=== PATIENT | male | born 1995 | race Caucasian/White ===

== ENCOUNTER 2017-02-10 21:44 | Emergency (ER) | payer SELFPAY ==
[~2017-02-10] VITALS: Ht 165.1 cm; Wt 68.0 kg
[2017-02-10 21:48] VITALS: BP 137/88; PULSE 94; RESP 16; TEMP 98.5; O2SAT 96
--- NOTE | 2017-02-10 22:23 | PD ---
Physical Exam Date Seen by Provider: Feb 10, 2017 Time Seen by Provider: 22:22 Narrative 21 yo male that presents to the ED for evaluation of right flank and lower abdominal pain. Going on since today. Pain is 7/10. sharp. No N/V. No BM issues. No surgeries to abdomen. Vitals are stable in triage. Awaiting bed placement. Data Data Last Documented VS Vital Signs Date Time Temp Pulse Resp B/P (MAP) Pulse Ox O2 Delivery O2 Flow Rate FiO2 02/10/17 21:48 98.5 94 16 137/88 (104) 96 Room Air [facility] Medical Record Reviewed: Yes Supervised Visit with CALVIN: No Umair Dailey Feb 10, 2017 22:23
[2017-02-11] MEDS ORDERED: SODIUM CHLOR 0.9% 1000 ML INJ 1,000 ML IV SCH (00:16)
--- NOTE | 2017-02-11 00:19 | PD ---
HPI Chief Complaint: Flank/Kidney Pain Time Seen by Provider: 00:12 Travel History International Travel<30 days: No Contact w/Intl Traveler<30days: No Traveled to known affect area: No History of Present Illness HPI 21-year-old male presents to the emergency department by private transportation for complaint of abdominal pain over 10 intensity. Pain is right upper quadrant and right flank. Nausea without vomiting. No diarrhea. This is third episode of similar pain. Patient denies personal history of gastritis peptic ulcer disease gallbladder disease or pancreatitis. No family history of dyslipidemia hypertriglyceridemia or gallbladder disease. Patient states he does frequently noticed symptoms after eating a greasy male. Patient denies any chest pain or shortness of breath. Patient's had no fever or chills. Patient's had no dysuria frequency urgency flank pain or hematuria. Patient denies any trauma injury. Patient is unable to identify exacerbating or alleviating factors. Currently pain is 0/10 in intensity. PFSH Past Medical History Narrative Medical Negative past medical history negative surgical history no tobacco use no alcohol use: Nursing notes reviewed Medical History: Denies Significant Hx Diminished Hearing: No Past Surgical History Surgical History: No Previous Surgery Social History Alcohol Use: No Tobacco Use: No Substance Use: No Allergies-Medications (Allergen,Severity, Reaction): Coded Allergies: No Known Allergies (Unverified , 02/10/17) Reported Meds & Prescriptions Reported Meds & Active Scripts Active Lortab (Hydrocodone-Acetaminophen) 5-325 Mg Tab 1 Tab PO Q6H PRN Ibuprofen 600 Mg Tab 600 Mg PO Q6H PRN Zofran (Ondansetron HCl) 4 Mg Tab 4 Mg PO Q6HR PRN Flomax (Tamsulosin HCl) 0.4 Mg Cap 0.4 Mg PO HS Review of Systems Except as stated in HPI: all other systems reviewed are Neg General / Constitutional: No: Fever, Chills HENT: No: Congestion Cardiovascular: No: Chest Pain or Discomfort Respiratory: No: Shortness of Breath Gastrointestinal: Positive: Nausea, Abdominal Pain, No: Vomiting, Diarrhea Genitourinary: No: Hematuria, Flank Pain Musculoskeletal: No: Myalgias, Arthralgias Skin: No Rash Neurologic: No: Weakness Psychiatric: No: Anxiety Hematologic/Lymphatic: No: Lymph Node Enlargement Physical Exam Narrative GENERAL: Well-developed well-nourished male in no acute distress no respiratory distress SKIN: Warm and dry. HEAD: Normocephalic. EYES: No scleral icterus. No injection or drainage. NECK: Supple, trachea midline. No JVD or lymphadenopathy. CARDIOVASCULAR: Regular rate and rhythm without murmurs, gallops, or rubs. RESPIRATORY: Breath sounds equal bilaterally. No accessory muscle use. GASTROINTESTINAL: Abdomen soft, non-tender, nondistended. No guarding or rebound no clinical Clark sign no tenderness at McBurney's point no heel strike pain. MUSCULOSKELETAL: No cyanosis, or edema. BACK: Nontender without obvious deformity. No CVA tenderness. Data Data Last Documented VS Vital Signs Date Time Temp Pulse Resp B/P (MAP) Pulse Ox O2 Delivery O2 Flow Rate FiO2 02/11/17 02:55 98.1 82 18 129/71 (90) 97 Nasal Cannula Orders Orders Complete Blood Count With Diff (02/11/17 00:16) Comprehensive Metabolic Panel (02/11/17 00:16) Lipase (02/11/17 00:16) Urinalysis - C+S If Indicated (02/11/17 00:16) Iv Access Insert/Monitor (02/11/17 00:16) Ecg Monitoring (02/11/17 00:16) Oximetry (02/11/17 00:16) Sodium Chlor 0.9% 1000 Ml Inj (Ns 1000 M (02/11/17 00:16) Sodium Chloride 0.9% Flush (Ns Flush) (02/11/17 00:30) Ct Abd/Pel W/O Iv Contrast (02/11/17 ) Ed Discharge Order (02/11/17 02:32) Labs Laboratory Tests Test 02/11/17 00:19 02/11/17 00:50 White Blood Count 11.8 TH/MM3 Red Blood Count 5.07 MIL/MM3 Hemoglobin 15.3 GM/DL Hematocrit 45.1 % Mean Corpuscular Volume 88.9 FL Mean Corpuscular Hemoglobin 30.2 PG Mean Corpuscular Hemoglobin Concent 34.0 % Red Cell Distribution Width 13.2 % Platelet Count 233 TH/MM3 Mean Platelet Volume 9.7 FL Neutrophils (%) (Auto) 83.6 % Lymphocytes (%) (Auto) 11.2 % Monocytes (%) (Auto) 4.6 % Eosinophils (%) (Auto) 0.4 % Basophils (%) (Auto) 0.2 % Neutrophils # (Auto) 9.8 TH/MM3 Lymphocytes # (Auto) 1.3 TH/MM3 Monocytes # (Auto) 0.5 TH/MM3 Eosinophils # (Auto) 0.0 TH/MM3 Basophils # (Auto) 0.0 TH/MM3 CBC Comment DIFF FINAL Differential Comment Blood Urea Nitrogen 23 MG/DL Creatinine 1.21 MG/DL Random Glucose 115 MG/DL Total Protein 8.0 GM/DL Albumin 4.3 GM/DL Calcium Level 9.2 MG/DL Alkaline Phosphatase 77 U/L Aspartate Amino Transf (AST/SGOT) 12 U/L Alanine Aminotransferase (ALT/SGPT) 22 U/L Total Bilirubin 0.5 MG/DL Sodium Level 139 MEQ/L Potassium Level 3.3 MEQ/L Chloride Level 104 MEQ/L Carbon Dioxide Level 28.5 MEQ/L Anion Gap 7 MEQ/L Estimat Glomerular Filtration Rate 77 ML/MIN Lipase 110 U/L Urine Color YELLOW Urine Turbidity CLEAR Urine pH 6.0 Urine Specific Cisco 1.039 Urine Protein TRACE mg/dL Urine Glucose (UA) NEG mg/dL Urine Ketones NEG mg/dL Urine Occult Blood MOD Urine Nitrite NEG Urine Bilirubin NEG Urine Urobilinogen 2.0 MG/DL Urine Leukocyte Esterase NEG Urine RBC 6 /hpf Urine WBC 2 /hpf Urine Squamous Epithelial Cells <1 /hpf Urine Calcium Oxalate Crystals RARE /hpf Urine Amorphous Sediment RARE Urine Mucus FEW /lpf Microscopic Urinalysis Comment CULT NOT INDICATED MDM Medical Decision Making Medical Screen Exam Complete: Yes Emergency Medical Condition: Yes Medical Record Reviewed: Yes Interpretation(s) CBC & BMP Diagram 02/11/17 00:19 Total Protein 8.0, Albumin 4.3, Calcium Level 9.2, Alkaline Phosphatase 77, Aspartate Amino Transf (AST/SGOT) 12 L, Alanine Aminotransferase (ALT/SGPT) 22, Total Bilirubin 0.5 Vital Signs Date Time Temp Pulse Resp B/P (MAP) Pulse Ox O2 Delivery O2 Flow Rate FiO2 02/10/17 22:28 18 02/10/17 21:48 98.5 94 16 137/88 (104) [address] a/p: distal right UVJ 5mm stone with mild hydroureter and hydronephrosis per reading radiologist Differential Diagnosis Abdominal pain, gastritis, peptic ulcer disease, biliary colic, cholecystitis, pancreatitis, renal colic, UTI, esophageal spasm, muscle skeletal pain Narrative Course IV access obtained specimens collected and sent for resulting patient given fluid hydration pain is currently 0/10 in intensity no pain medication administered CBC with automated differential metabolic panel values found to be grossly normal range Urinalysis positive for red blood cells as well as occult blood no evidence for infection and culture not indicated in view of sudden onset of symptoms flank pain with nausea without vomiting will proceed with CT kidney stone protocol CT kidney stone protocol resulted and identified to have distal right UVJ 5 mm stone with mild hydroureter and hydronephrosis; patient is stable for outpatient management and follow-up with urologist. Critical Care Narrative IV access obtained specimens collected and sent for resulting patient administered 1 L normal saline currently pain is 0/10 in intensity and no nausea therefore no anti-medic or pain medication administered at this time Diagnosis Primary Impression: Nephrolithiasis Additional Impression: Renal colic on right side Referrals: Urologist call for appointment yard caller Urologist; Dr Farley Patient Instructions: General Instructions Additional Instructions: Increase fluid hydration Take medication as prescribed Follow-up with urologist Return to the emergency department for any concerns or change in condition No work times one day strain urine Med/Other Pt SpecificInfo: Prescription(s) given Scripts Hydrocodone-Acetaminophen (Lortab) 5-325 Mg Tab 1 TAB PO Q6H Y for PAIN, #7 TAB 0 Refills Prov: Shantell Azevedo MD 02/11/17 Ibuprofen (Ibuprofen) 600 Mg Tab 600 MG PO Q6H Y for Pain/Inflammation, #15 TAB 0 Refills Prov: Shantell Azevedo MD 02/11/17 Ondansetron (Zofran) 4 Mg Tab 4 MG PO Q6HR Y for NAUSEA OR VOMITING, #10 TAB 0 Refills Prov: Shantell Azevedo MD 02/11/17 Tamsulosin (Flomax) 0.4 Mg Cap 0.4 MG PO HS for Manage Prostate Problems, #7 CAP 0 Refills Prov: Shantell Azevedo MD 02/11/17 Disposition: 01 DISCHARGE HOME Condition: Stable Shantell Azevedo MD Feb 11, 2017 00:19
[2017-02-11] MEDS ORDERED: SODIUM CHLORIDE 0.9% FLUSH 10 ML FLUSH IV FLUSH PRN (00:30)
[2017-02-11 00:31] LABS: AUTOMATED NEUTROPHIL # 9.8 TH/MM3 (1.8-7.7); BASOPHIL % 0.2 % (0.0-2.0); EOSINOPHIL % 0.4 % (0.0-4.0); HEMATOCRIT 45.1 % (39.0-51.0); HEMO FLAGS DIFF FINAL; LYMPH % 11.2 % (9.0-44.0); LYMPHOCYTE # 1.3 TH/MM3 (1.0-4.8); MEAN CELL VOLUME 88.9 FL (80.0-100.0); MEAN CORPUSCULAR HEMOGLOBIN 30.2 PG (27.0-34.0); MONO % 4.6 % (0.0-8.0); NEUT % 83.6 % (16.0-70.0); PLATELET COUNT 233 TH/MM3 (150-450); RED BLOOD COUNT 5.07 MIL/MM3 (4.50-5.90); RED CELL DISTRIBUTION WIDTH 13.2 % (11.6-17.2); WHITE BLOOD COUNT 11.8 TH/MM3 (4.0-11.0)
[2017-02-11 00:52] LABS: ANION GAP 7 MEQ/L (5-15); AST (GOT) 12 U/L (15-39); BICARBONATE 28.5 MEQ/L (21.0-32.0); BLOOD UREA NITROGEN 23 MG/DL (7-18); CHLORIDE 104 MEQ/L (98-107); GLOMERULAR FILTRATION RATE 77 ML/MIN (>89); POTASSIUM 3.3 MEQ/L (3.5-5.1); SODIUM (NA) 139 MEQ/L (136-145)
[2017-02-11 00:57] LABS: ALKALINE PHOSPHATASE 77 U/L (45-117); ALT (GPT) 22 U/L (9-52); TOTAL BILIRUBIN ADULT 0.5 MG/DL (0.2-1.0)
[2017-02-11 01:30] LABS: BLOOD, URINE MOD (NEG); CALCIUM OXALATE CRYSTALS,URINE RARE /hpf; COMMENT (UR) CULT NOT INDICATED; CULTURE IF INDICATED CULT NOT INDICATED; GLUCOSE,URINE NEG (NEG); KETONE, URINE NEG (NEG); MUCUS URINE FEW /lpf (OCC); NITRITE,URINE NEG (NEG); SQUAMOUS EPITHELIAL CELL URINE <1 /hpf (0-5); URINE COLOR YELLOW (YELLW/STRAW)
--- NOTE | 2017-02-11 02:16 | RADRPT ---
EXAM DATE/TIME: 02/11/2017 02:04 [facility] COMPARISON: No previous studies available for comparison. INDICATIONS : Right flank pain. ORAL CONTRAST: No oral contrast ingested. RADIATION DOSE: 3.90 CTDIvol (mGy) MEDICAL HISTORY : None SURGICAL HISTORY : None. ENCOUNTER: Initial ACUITY: 1 day PAIN SCALE: 4/10 LOCATION: Right flank TECHNIQUE: Volumetric scanning of the abdomen and pelvis was performed. Using automated exposure control and ad justment of the mA and/or kV according to patient size, radiation dose was kept as low as reasonably achievable to obtain optimal diagnostic quality images. DICOM format image data is available electro nically for review and comparison. FINDINGS: LOWER LUNGS: The visualized lower lungs are clear. LIVER: Visualized portions are unremarkable. SPLEEN: Normal size without lesion. PANCREAS: Within normal limits. KIDNEYS: Right kidney is mildly swollen. There is mild right hydronephrosis and hydroureter down to the level of a 5 mm stone just proximal to the ureterovesical junction. Left kidney is unremarkable. ADRENAL GLANDS: Within normal limits. VASCULAR: There is no aortic aneurysm. BOWEL/MESENTERY: The stomach, small bowel, and colon demonstrate no acute abnormality. There is no free intraperitone al air or fluid. ABDOMINAL WALL: Within normal limits. RETROPERITONEUM: There is no lymphadenopathy. BLADDER: No wall thickening or mass. REPRODUCTIVE: Within normal limits. INGUINAL: There is no lymphadenopathy or hernia. MUSCULOSKELETAL: Within normal limits for patient age. CONCLUSION: 5 mm distal right ureteral stone with mild hydronephrosis and hydroureter Geronimo Caceres MD on February 11, 2017 at 2:11 Board Certified Radiologist. This report was verified electronically.
[2017-02-11] MEDS ORDERED: ZOFR4TAB PO (02:37)
[2017-02-11] MEDS ORDERED: HYDR-3533 PO (02:37)
[2017-02-11] MEDS ORDERED: TAMS5CAP PO (02:37)
[2017-02-11] MEDS ORDERED: IBUP-232 PO (02:37)
[2017-02-11 02:44] VITALS: O2SAT 100
[2017-02-11 02:55] VITALS: BP 129/71; TEMP 98.1
== END 2017-02-11 02:57 | disposition home or self-care (01) ==
LOC: NEPC 21:44
DX: N20.0 Calculus of kidney (principal); N23 Unspecified renal colic; R11.0 Nausea
CPT/HCPCS: 74176; 80053; 81001; 83690; 85025; 99284; J7030